=== PATIENT | female | born 1975 | race African-American/Black ===

== ENCOUNTER 2016-12-14 18:16 | Emergency (ER) | payer OTHER ==
[~2016-12-14] VITALS: Ht 160 cm; Wt 85.0 kg
[2016-12-14 19:35] VITALS: BP 136/78
[2016-12-14 19:48] LABS: BASOPHILS % 1.6 % (0.0-2.0); EOSINOPHILS % 0.7 % (0.0-5.0); HEMATOCRIT. 25.8 % (36.0-48.0); HEMOGLOBIN. 7.5 g/dL (12.0-16.0); LYMPHOCYTES % 14.1 % (20.0-50.0); MEAN CORPUSCULAR HEMOGLOBIN 15.6 pg (28.0-32.0); MEAN CORPUSCULAR VOLUME 53.7 fL (81.0-99.0); MEAN PLATELET VOLUME 8.8 fl (7.4-10.4); MONOCYTES % 8.1 % (2.0-8.0); NEUTROPHILS % 75.5 % (40.0-76.0); PLATELET 301 x1000/uL (130-400); RED CELL DISTRIBUTION WIDTH 21.6 % (11.6-14.6)
[2016-12-14 19:50] LABS: CHLORIDE 103 mEq/L (98-107)
[2016-12-14 19:51] LABS: INR 1.1; PROTHROMBIN TIME 11.1 sec
[2016-12-14 19:56] LABS: CARBON DIOXIDE 28 mEq/L (21-32)
[2016-12-14 20:01] LABS: CLARITY URINE CLOUDY (CLEAR); COLOR URINE DARK YELLOW (YELLOW); GLUCOSE URINE NEGATIVE (NEGATIVE); KETONES URINE TRACE (NEGATIVE); LEUKOCYTE ESTERASE URINE NEGATIVE (NEGATIVE); NITRITE URINE NEGATIVE (NEGATIVE); OCCULT BLOOD URINE NEGATIVE (NEGATIVE); PH URINE 5.5 (4.5-8.0); PROTEIN URINE 2+ (NEGATIVE); SPECIFIC GRAVITY URINE 1.033 (1.005-1.030)
[2016-12-14 20:05] LABS: PLATELET ESTIMATE NORMAL
== END 2016-12-14 23:04 | disposition home or self-care (01) ==
LOC: ER 22:58
DX: D64.9 Anemia, unspecified (principal); D25.9 Leiomyoma of uterus, unspecified; I10 Essential (primary) hypertension; Z79.899 Other long term (current) drug therapy; Z91.14 Patient's other noncompliance with medication regimen
CPT/HCPCS: 36415; 80048; 81001; 85025; 85610; 86850; 86900; 86901; 99284; Z7610

== ENCOUNTER 2017-11-17 13:38 | Emergency (ER) | payer MEDICAID, OTHER ==
[~2017-11-17] VITALS: Ht 160 cm; Wt 80.0 kg
[2017-11-17 15:51] LABS: BASOPHILS % 0.8 % (0.0-2.0); EOSINOPHILS % 1.8 % (0.0-5.0); HEMATOCRIT. 31.5 % (36.0-48.0); HEMOGLOBIN. 10.5 g/dL (12.0-16.0); LYMPHOCYTES % 20.3 % (20.0-50.0); MEAN CORPUSCULAR HEMOGLOBIN 27.4 pg (28.0-32.0); MEAN CORPUSCULAR VOLUME 82.7 fL (81.0-99.0); MEAN PLATELET VOLUME 8.4 fl (7.4-10.4); MONOCYTES % 5.5 % (2.0-8.0); NEUTROPHILS % 71.6 % (40.0-76.0); PLATELET 208 x1000/uL (130-400); RED BLOOD CELL COUNT 3.81 mill/uL (4.2-5.4)
[2017-11-17 15:58] LABS: CHLORIDE 103 mEq/L (98-107)
[2017-11-17 15:59] LABS: HCG SCREEN NEGATIVE
[2017-11-17 16:47] LABS: CLARITY URINE CLEAR (CLEAR); COLOR URINE ORANGE (YELLOW); KETONES URINE NEGATIVE (NEGATIVE); LEUKOCYTE ESTERASE URINE TRACE (NEGATIVE); NITRITE URINE NEGATIVE (NEGATIVE); OCCULT BLOOD URINE 3+ (NEGATIVE); PH URINE 7.5 (4.5-8.0); PROTEIN URINE 3+ (NEGATIVE); SPECIFIC GRAVITY URINE 1.008 (1.005-1.030); UROBILINOGEN URINE 0.2 E.U./dL (0.2-1.0)
[2017-11-17 19:15] VITALS: BP 119/69
== END 2017-11-17 19:17 | disposition home or self-care (01) ==
LOC: ER 14:44
DX: D25.9 Leiomyoma of uterus, unspecified (principal); D64.9 Anemia, unspecified; I10 Essential (primary) hypertension; Z88.6 Allergy status to analgesic agent
CPT/HCPCS: 36415; 76830; 76856; 80053; 81003; 84703; 85025; 86850; 86900; 99285

== ENCOUNTER 2023-03-13 17:38 | Emergency (ER) | payer MEDICAID ==
[~2023-03-13] VITALS: Ht 167.6 cm; Wt 72.0 kg
[2023-03-13 17:42] VITALS: BP 136/87; PULSE 86; RESP 20; TEMP 98.3; O2SAT 100
[2023-03-13 18:56] LABS: DIFFERENTIAL COMMENT 0; EOSINOPHILS % 1.8 % (0.0-5.0); HEMOGLOBIN. 11.8 g/dL (12.0-16.0); LYMPHOCYTES % 28.2 % (20.0-50.0); MEAN CORPUSCULAR HEMOGLOBIN 22.5 pg (28.0-32.0); MEAN CORPUSCULAR HGB CONC 30.3 g/dL (31.0-37.0); MEAN CORPUSCULAR VOLUME 74.2 fL (81.0-99.0); MEAN PLATELET VOLUME 8.8 fl (7.4-10.4); MONOCYTES % 8.3 % (2.0-8.0); NEUTROPHILS % 60.7 % (40.0-76.0); PLATELET 336 x1000/uL (130-400); RED BLOOD CELL COUNT 5.26 mill/uL (4.2-5.4); WHITE BLOOD COUNT 6.3 x1000/uL (4.5-11.0)
[2023-03-13 19:00] LABS: CHLORIDE 101 mEq/L (98-107); INDEX HEMOLYSI 1 (1-3); INDEX ICTERIC 1 (1-4); INDEX LIPEMIC 1 (1-3); POTASSIUM 3.4 mEq/L (3.5-5.1); SODIUM 134 mEq/L (136-145)
[2023-03-13 19:04] LABS: ALBUMIN 3.9 g/dL (3.4-5.0); CALCIUM 9.1 mg/dL (8.5-10.1); CARBON DIOXIDE 25 mEq/L (21-32); GLUCOSE 99 mg/dL (70-105); UREA NITROGEN BLOOD 12 mg/dL (7-21)
[2023-03-13 19:10] LABS: CLARITY URINE CLEAR (CLEAR); COLOR URINE DARK YELLOW (YELLOW); GLUCOSE URINE NEGATIVE (NEGATIVE); KETONES URINE NEGATIVE (NEGATIVE); LEUKOCYTE ESTERASE URINE NEGATIVE (NEGATIVE); NITRITE URINE NEGATIVE (NEGATIVE); OCCULT BLOOD URINE NEGATIVE (NEGATIVE); PH URINE 6.5 (4.5-8.0); PROTEIN URINE NEGATIVE (NEGATIVE); SPECIFIC GRAVITY URINE 1.019 (1.005-1.030)
[2023-03-13 19:10] LABS: ALANINE AMINOTRANSFERASE 39 IU/L (13-61); ASPARTATE AMINOTRANSFERASE 44 IU/L (15-37); BILIRUBIN TOTAL 0.5 mg/dL (0.1-1.0); CREATININE 0.8 mg/dL (0.6-1.3); PROTEIN TOTAL 8.5 g/dL (6.0-8.3)
[2023-03-13 21:23] LABS: TROPONIN I HIGH SENSITIVITY 17 ng/L (<54)
== END 2023-03-13 22:25 | disposition left against medical advice (07) ==
LOC: ER 21:15
DX: R07.9 Chest pain, unspecified (principal); Z53.21 Procedure and treatment not carried out due to patient leaving prior to being seen by health care provider
CPT/HCPCS: 36415; 80053; 81003; 84484; 85025; 93005; 99281

== ENCOUNTER 2024-04-05 14:17 | Inpatient (IN) | payer MEDICAID, OTHER ==
[~2024-04-05] VITALS: Ht 160 cm; Wt 80.8 kg
[2024-04-05 17:11] LABS: ADD RBC MORPHOLOGY YES; BASOPHILS % 0.8 % (0.0-2.0); DIFFERENTIAL COMMENT 1; EOSINOPHILS % 2.3 % (0.0-5.0); HEMATOCRIT. 27.9 % (36.0-48.0); HEMOGLOBIN. 8.6 g/dL (12.0-16.0); LYMPHOCYTES % 18.6 % (20.0-50.0); MEAN CORPUSCULAR HEMOGLOBIN 18.6 pg (28.0-32.0); MEAN CORPUSCULAR HGB CONC 30.9 g/dL (31.0-37.0); MEAN CORPUSCULAR VOLUME 60.3 fL (81.0-99.0); MEAN PLATELET VOLUME 8.6 fl (7.4-10.4); MONOCYTES % 8.7 % (2.0-8.0); NEUTROPHILS % 69.6 % (40.0-76.0); PLATELET 312 x1000/uL (130-400); RED BLOOD CELL COUNT 4.63 mill/uL (4.2-5.4); RED CELL DISTRIBUTION WIDTH 19.9 % (11.6-14.6); WHITE BLOOD COUNT 6.1 x1000/uL (4.5-11.0)
[2024-04-05 17:13] LABS: CHLORIDE 104 mEq/L (98-107); POTASSIUM 4.2 mEq/L (3.5-5.1); SODIUM 139 mEq/L (136-145)
[2024-04-05 17:14] LABS: CALCIUM 9.3 mg/dL (8.7-10.4); CARBON DIOXIDE 29 mEq/L (21-32)
[2024-04-05 17:19] LABS: CREATININE 0.7 mg/dL (0.6-1.0); GLUCOSE 93 mg/dL (70-105); TROPONIN I HIGH SENSITIVITY 22 ng/L (3.0-34); UREA NITROGEN BLOOD 10 mg/dL (9-23)
[2024-04-05 17:23] LABS: HCG SCREEN NEGATIVE
[2024-04-05 17:32] LABS: ANISOCYTOSIS 2+; HYPOCHROMASIA 3+; MICROCYTOSIS 3+; PLATELET ESTIMATE NORMAL
[2024-04-05] MEDS ORDERED: CLONIDINE 0.1MG TABLET PO PRN (18:15)
[2024-04-05] MEDS ORDERED: GUAIFENESIN 200MG/10ML SUGAR FREE UDC PO PRN (18:15)
[2024-04-05] MEDS ORDERED: NITROGLYCERIN 0.4MG TABLET SL SL PRN (18:15)
[2024-04-05] MEDS ORDERED: ACETAMINOPHEN 325MG TABLET PO PRN ×2 (18:15)
[2024-04-05] MEDS ORDERED: KETOROLAC 15MG/ML VIAL IV PRN (18:15)
[2024-04-05] MEDS ORDERED: ZOLPIDEM TARTRATE 5MG TABLET PO PRN (18:15)
[2024-04-05] MEDS ORDERED: MAGNESIUM/ALUMINUM HYDROXIDE/SIMETHICONE 30ML UDC PO PRN (18:15)
[2024-04-05] MEDS ORDERED: ONDANSETRON HCL 4MG/2ML INJ IV PRN (18:15)
[2024-04-05] MEDS ORDERED: IPRATROPIUM/ALBUTEROL 0.5-3(2.5)MG/3ML NEB NEB PRN (18:15)
[2024-04-05] MEDS ORDERED: DOCUSATE SODIUM 100MG CAPSULE PO PRN (18:15)
[2024-04-05 18:30] LABS: TROPONIN I HIGH SENSITIVITY 23 ng/L (3.0-34)
[2024-04-05 19:54] LABS: IRON 19 ug/dL (50-170)
[2024-04-05 19:55] LABS: LDL CHOLESTEROL 83 mg/dL (5-100); TRIGLYCERIDE 52 mg/dL (0-150)
[2024-04-05 19:56] LABS: CHOLESTEROL 156 mg/dL (<200); HDL CHOLESTEROL 67 mg/dL (>65)
[2024-04-05 19:57] LABS: TOTAL IRON BINDING CAPACITY 426 ug/dl (250-425)
[2024-04-05 19:59] LABS: FOLIC ACID (FOLATE) SERUM > 20.00 ng/mL (>5.38)
[2024-04-05 20:00] LABS: VITAMIN B12 SERUM 372 pg/mL (211-911)
[2024-04-05 20:01] LABS: THYROID STIMULATING HORMONE 0.68 uIU/mL (0.55-4.78)
[2024-04-05 20:03] LABS: T4 FREE 0.93 ng/dL (0.89-1.76)
[2024-04-05 20:28] LABS: ETHANOL BLOOD < 10 mg/dL (<10)
[2024-04-05 23:32] LABS: CREATINE KINASE MB FRACTION 5.5 ng/mL (0.5-3.6)
[2024-04-06] MEDS ORDERED: LOSA1TAB34 MT (03:08)
[2024-04-06 03:18] VITALS: BP 137/84; PULSE 81; RESP 18; TEMP 36.696
[2024-04-06 04:00] VITALS: BP 125/77; PULSE 66; RESP 18; TEMP 36.50292; O2SAT 100
[2024-04-06 08:00] VITALS: BP 111/58; PULSE 72; RESP 18; TEMP 36.05844; O2SAT 100
[2024-04-06] MEDS: PANTOPRAZOLE SODIUM 40 MG/VIAL IV SCH (09:02)
[2024-04-06 11:01] LABS: BASOPHILS % 0.8 % (0.0-2.0); EOSINOPHILS % 2.2 % (0.0-5.0); HEMATOCRIT. 30.7 % (36.0-48.0); HEMOGLOBIN. 9.3 g/dL (12.0-16.0); MEAN CORPUSCULAR HEMOGLOBIN 18.4 pg (28.0-32.0); MEAN CORPUSCULAR HGB CONC 30.3 g/dL (31.0-37.0); MEAN CORPUSCULAR VOLUME 60.7 fL (81.0-99.0); MEAN PLATELET VOLUME 8.6 fl (7.4-10.4); MONOCYTES % 8.1 % (2.0-8.0); NEUTROPHILS % 67.9 % (40.0-76.0); PLATELET 329 x1000/uL (130-400); RED BLOOD CELL COUNT 5.06 mill/uL (4.2-5.4); RED CELL DISTRIBUTION WIDTH 20.3 % (11.6-14.6); WHITE BLOOD COUNT 5.6 x1000/uL (4.5-11.0)
[2024-04-06 11:03] LABS: ADD RBC MORPHOLOGY NO; CHLORIDE 103 mEq/L (98-107); DIFFERENTIAL COMMENT 1; POTASSIUM 3.8 mEq/L (3.5-5.1); SODIUM 137 mEq/L (136-145)
[2024-04-06 11:05] LABS: CALCIUM 9.4 mg/dL (8.7-10.4); CARBON DIOXIDE 29 mEq/L (21-32)
[2024-04-06 11:10] LABS: CREATININE 0.7 mg/dL (0.6-1.0); GLUCOSE 115 mg/dL (70-105); UREA NITROGEN BLOOD 7 mg/dL (9-23)
[2024-04-06 11:11] LABS: CREATINE KINASE MB FRACTION 8.5 ng/mL (0.5-3.6)
[2024-04-06 11:12] LABS: ALANINE AMINOTRANSFERASE 24 IU/L (10-49); ALBUMIN 4.4 g/dL (3.2-4.8); ASPARTATE AMINOTRANSFERASE 42 IU/L (<34); BILIRUBIN TOTAL 0.9 mg/dL (0.1-1.0); PHOSPHORUS 4.6 mg/dL (2.5-4.9); PROTEIN TOTAL 7.9 g/dL (6.0-8.3)
[2024-04-06 11:20] LABS: CREATINE KINASE MB FRACTION 8.7 ng/mL (0.5-3.6)
[2024-04-06 12:00] VITALS: BP 115/70; PULSE 66; RESP 18; TEMP 36.22512; O2SAT 100
[2024-04-06] MEDS: ASPIRIN 325MG EC TABLET PO SCH (12:38)
[2024-04-06 13:05] LABS: *AMPHETAMINES SCREEN URINE NEGATIVE (NEGATIVE); *BARBITURATES SCREEN URINE NEGATIVE (NEGATIVE); *BENZODIAZEPINES SCREEN URINE NEGATIVE (NEGATIVE); *COCAINE SCREEN URINE NEGATIVE (NEGATIVE); METHADONE URINE SCREEN NEGATIVE (NEGATIVE); OPIATES URINE SCREEN NEGATIVE (NEGATIVE)
[2024-04-06 13:06] LABS: CANNABINOID URINE SCREEN NEGATIVE (NEGATIVE); ECSTASY MDMA SCREEN URINE NEGATIVE (NEGATIVE); PHENCYCLIDINE URINE SCREEN NEGATIVE (NEGATIVE)
[2024-04-06 16:00] VITALS: BP 135/80; PULSE 66; RESP 18; TEMP 36.28068; O2SAT 100
[2024-04-06 20:00] VITALS: BP 133/84; PULSE 57; RESP 16; TEMP 36.89184; O2SAT 99
[2024-04-07] VITALS (7 sets, daily range): BP systolic 107–145; BP diastolic 64–83; PULSE 59–67; RESP 15–20; TEMP 36.33624–36.78072; O2SAT 97–100
[2024-04-08] VITALS: BP 133/58; PULSE 63; RESP 18; TEMP 36.22512; O2SAT 98
[2024-04-08 04:25] VITALS: BP 111/75; PULSE 63; RESP 18; TEMP 36.50292; O2SAT 98
[2024-04-08 08:00] VITALS: BP 125/74; PULSE 67; RESP 18; TEMP 36.44736; O2SAT 96
[2024-04-08 12:00] VITALS: BP 120/77; PULSE 65; RESP 15; TEMP 36.16956; O2SAT 98
[2024-04-08] MEDS ORDERED: ATOR10TA MT (14:45)
[2024-04-08] MEDS ORDERED: ASPI-1406 MT (14:45)
[2024-04-08 16:00] VITALS: BP 116/69; PULSE 62; RESP 19; TEMP 36.16956; O2SAT 96
[2024-04-08 16:59] VITALS: BP 116/69; PULSE 62; TEMP 97.1; O2SAT 98
== END 2024-04-08 17:50 | disposition home or self-care (01) | DRG 82 ==
LOC: ER 14:17 → 5WST 16:20 → EDBEDREQ 16:21 → 7EST 04-06 03:07
PROVIDERS: ADMIT Internal Medicine; ATTEND Internal Medicine
DX: H53.2 Diplopia (principal); I21.A1 Myocardial infarction type 2; D62 Acute posthemorrhagic anemia; I16.9 Hypertensive crisis, unspecified; E11.9 Type 2 diabetes mellitus without complications; I10 Essential (primary) hypertension; Z20.822 Contact with and (suspected) exposure to COVID-19; N92.0 Excessive and frequent menstruation with regular cycle; Z91.148 Patient's other noncompliance with medication regimen for other reason; Z88.5 Allergy status to narcotic agent
CPT/HCPCS: 36415; 70551; 71045; 76856; 80048; 80053; 80061; 80305; 80320; 82550; 82553; 82607; 82746; 83036; 83540; 83550; 83735; 84100; 84439; 84443; 84484; 84703; 85025; 93005; 93306; 93970; 99285; J2470; G0480